=== PATIENT | female | born 1990 | race Two or more races ===

== ENCOUNTER 2016-11-28 16:27 | Emergency (ER) | payer SELFPAY ==
[~2016-11-28] VITALS: Ht 152.4 cm; Wt 81.6 kg
[2016-11-28] MEDS ORDERED: SODIUM CHLORIDE 0.9% 1,000 ML IVB ONE (16:42)
[2016-11-28] MEDS ORDERED: PANTOPRAZOLE SODIUM 40 MG/10 ML VIAL IV STA (16:42)
[2016-11-28] MEDS ORDERED: MORPHINE SULFATE 4 MG/ML SYRG IV ONE (16:45)
[2016-11-28] MEDS ORDERED: ONDANSETRON HCL 4 MG/2 ML VIAL IV ONE ×2 (16:45→18:45)
[2016-11-28 17:05] LABS: Urine RBC None Seen /hpf (0 - 4)
[2016-11-28 17:13] LABS: Urine Bilirubin Negative (Negative); Urine Blood Negative /uL (Negative); Urine Color Yellow (Yellow); Urine Glucose Normal (Normal); Urine Mucus FEW (None Seen); Urine Nitrite Negative (Negative); Urine Squamous Epithelial Cell FEW /hpf (<5); Urine Urobilinogen Normal (Negative)
[2016-11-28 17:14] LABS: Urine Ketone 2+ (Negative)
[2016-11-28 17:37] LABS: Albumin 3.6 g/dL (3.4-5.0); BUN/Creatinine Ratio 17.6; Potassium 4.6 mmol/L (3.5-5.1); Total Protein 7.9 g/dL (6.4-8.2)
[2016-11-28 17:40] LABS: CONDITION Y; Hematocrit 46.5 % (36.0-46.0); Mean Corpuscular Hemoglobin 30.5 pg (28.0-32.0); Mean Corpuscular Hgb Conc. 34.5 g/dL (32.0-36.0); Mean Corpuscular Volume 88.4 fL (80.0-100.0); Mean Platelet Volume 9.8 fL (7.4-10.4); Platelet Count (auto) 322 10^3/uL (140-450); Red Cell Distribution Width 12.8 % (11.6-16.0); SUSPECT SEE PRINTOUT; White Blood Cell 20.8 10^3/uL (4.4-10.8)
[2016-11-28 17:52] LABS: Metamyelocytes % 0; Myelocytes % 0; Promyelocytes % 0; Reactive Lymphocytes 0
[2016-11-28 18:37] LABS: Platelet Estimate Adequate; RBC Morphology Normal
[2016-11-28 19:50] VITALS: BP 120/82
== END 2016-11-28 20:43 | disposition home or self-care (01) ==
LOC: EDBD 16:39 → ER 16:39
DX: N39.0 Urinary tract infection, site not specified (principal); K21.9 Gastro-esophageal reflux disease without esophagitis; Z88.0 Allergy status to penicillin
CPT/HCPCS: 36415; 74176; 76705; 80053; 81001; 82150; 83690; 84702; 85007; 85027; 94761; 96361; 96374; 96375; 96376; 99285; C9113; J2270; J2405; J7030